=== PATIENT | female | born 1985 | race Asian ===

== ENCOUNTER 2024-03-06 12:25 | Outpatient (CLI) | payer BC | END 2024-03-06 12:26 | disposition home or self-care (01) | LOC: CSHULT 12:25 | PROVIDERS: ATTEND Family Medicine | DX: E04.2 Nontoxic multinodular goiter (principal); E04.1 Nontoxic single thyroid nodule | CPT/HCPCS: 76536 ==

== ENCOUNTER 2024-09-12 14:59 | Outpatient (CLI) | payer BC | END 2024-09-12 15:00 | disposition home or self-care (01) | LOC: CSHMAMMO 14:59 | PROVIDERS: ATTEND Family Medicine | DX: Z13.820 Encounter for screening for osteoporosis (principal); M85.89 Other specified disorders of bone density and structure, multiple sites; Z79.52 Long term (current) use of systemic steroids | CPT/HCPCS: 77080 ==